=== PATIENT | female | born 1975 | race Caucasian/White ===

== ENCOUNTER 2016-11-10 22:13 | Emergency (ER) | payer OTHER ==
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
--- NOTE | ~2016-11-10 | EKG ---
PATIENT: ALEJANDRO CID UNIT #: [id number] Ventricular Rate: 79 BPM Atrial Rate: 79 BPM P-R Interval: 112 ms QRS Duration: 100 ms Q-T Interval: 402 ms QTC Calculation(Bezet): 460 ms P Newcomb: 48 degrees Calculated R Newcomb: 65 degrees Calculated T Newcomb: 18 degrees Diagnosis Line: Normal sinus rhythm Diagnosis Line: Normal ECG Diagnosis Line: No previous ECGs available Diagnosis Line: Confirmed by MOHSEN GARDUNO MD ([id number]) on Diagnosis Line: 11/14/2016 11:02:48 AM INTERPRETING MD: SHAAN RON
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
== END 2016-11-11 00:18 | disposition home or self-care (01) ==
LOC: SED 22:13
DX: S16.1XXA Strain of muscle, fascia and tendon at neck level, initial encounter (principal); S39.012A Strain of muscle, fascia and tendon of lower back, initial encounter; S80.02XA Contusion of left knee, initial encounter; V49.00XA Driver injured in collision with unspecified motor vehicles in nontraffic accident, initial encounter; Y92.410 Unspecified street and highway as the place of occurrence of the external cause
CPT/HCPCS: 29530; 71020; 72040; 72100; 73560; 93005; 99285